=== PATIENT | male | born 1970 | race Two or more races ===

== ENCOUNTER 2017-09-02 01:17 | Emergency (ER) | payer MEDICAID ==
[~2017-09-02] VITALS: Ht 167.6 cm; Wt 94.3 kg
[2017-09-02 03:50] LABS: BASOPHILS % 0.5 % (0.0-2.0); EOSINOPHILS % 2.1 % (0.0-5.0); HEMATOCRIT. 42.4 % (42.0-52.0); HEMOGLOBIN. 14.5 g/dL (14.0-18.0); LYMPHOCYTES % 32.6 % (20.0-50.0); MEAN CORPUSCULAR HEMOGLOBIN 28.9 pg (28.0-32.0); MEAN CORPUSCULAR VOLUME 84.7 fL (80.0-94.0); MEAN PLATELET VOLUME 9.3 fl (7.4-10.4); MONOCYTES % 7.8 % (2.0-8.0); PLATELET 224 x1000/uL (130-400); RED BLOOD CELL COUNT 5.01 mill/uL (4.7-6.1); RED CELL DISTRIBUTION WIDTH 13.5 % (11.6-14.6)
[2017-09-02 03:57] LABS: CHLORIDE 105 mEq/L (98-107)
[2017-09-02 03:59] LABS: INR 1.1; PROTHROMBIN TIME 11.2 sec (9.4-11.6)
[2017-09-02 04:01] LABS: ETHANOL BLOOD < 10 mg/dL
[2017-09-02 04:04] LABS: LDL CHOLESTEROL 109 mg/dL (5-100)
[2017-09-02 05:57] VITALS: BP 179/89
== END 2017-09-02 05:57 | disposition left against medical advice (07) ==
LOC: ER 01:17 → CANBEDREQ 06:23
DX: G45.9 Transient cerebral ischemic attack, unspecified (principal); R55 Syncope and collapse; I10 Essential (primary) hypertension; E78.00 Pure hypercholesterolemia, unspecified; E87.6 Hypokalemia; R73.9 Hyperglycemia, unspecified; G81.91 Hemiplegia, unspecified affecting right dominant side
CPT/HCPCS: 36415; 70450; 71045; 80053; 83721; 84484; 85025; 85610; 93005; 99285; G0482